=== PATIENT | female | born 1955 | race Two or more races ===

== ENCOUNTER 2018-07-16 09:40 | Day surgery (SDC) | payer OTHER ==
[~2018-07-16 09:40] MED LIST: DEXAMETHASONE 4 MG/ML 5 ML INJ
[2018-07-16] MEDS ORDERED: FENTAnyl 50 MCG/ML VIAL (11:15)
[2018-07-16] MEDS ORDERED: MIDAZOLAM 1 MG/ML 2 ML INJ (11:15)
[2018-07-16] MEDS ORDERED: LIDOCAINE 2% (SDV) 5 ML INJ (11:24)
[2018-07-16] MEDS ORDERED: PROPOFOL 20 ML (11:24)
[2018-07-16] MEDS ORDERED: CEFAZOLIN 1 GM INJ (11:27)
[2018-07-16] MEDS ORDERED: ALBUTEROL 0.083% (NEB) 2.5 MG/3 ML AMP HHN (11:30)
[2018-07-16] MEDS ORDERED: DIPHENHYDRAMINE 50 MG INJ IV (11:30)
[2018-07-16] MEDS ORDERED: FENTAnyl 50 MCG/ML VIAL IV (11:30)
[2018-07-16] MEDS ORDERED: MEPERIDINE 25 MG INJ IV (11:30)
[2018-07-16] MEDS ORDERED: LABETALOL HCL 20MG INJ IV (11:30)
[2018-07-16] MEDS ORDERED: HYDROmorphONE 1 MG/5 ML IV SYRINGE IV (11:30)
[2018-07-16] MEDS ORDERED: OXYCODONE/ACETAMINOPHEN (5/325) TAB PO ×2 (11:30)
[2018-07-16] MEDS: BUPIVACAINE 0.5% (SDV) 30 ML INJ (11:36)
[2018-07-16] MEDS: POLYMYXIN/BACITRACIN 1L IRRIG IRR (11:36)
[2018-07-16] MEDS ORDERED: EPHEDrine SULFATE 50 MG/5 ML SYG (11:47)
[2018-07-16] MEDS: ONDANSETRON 4 MG INJ IV ×2 (12:34→13:30)
[2018-07-16] MEDS: FENTAnyl 50 MCG/ML VIAL IV ×2 (12:34→12:42)
[2018-07-16] MEDS: HYDROmorphONE 1 MG/5 ML IV SYRINGE IV (13:05)
== END 2018-07-16 14:50 | disposition home or self-care (01) ==
LOC: SDS 09:40
DX: M21.611 Bunion of right foot (principal); I10 Essential (primary) hypertension; E78.5 Hyperlipidemia, unspecified; E03.9 Hypothyroidism, unspecified
CPT/HCPCS: 28296; 73630; 88304; 88311